=== PATIENT | female | born 2000 | race Two or more races ===

== ENCOUNTER 2022-07-21 20:43 | Emergency (ER) | payer SELFPAY ==
[~2022-07-21] VITALS: Ht 162.6 cm; Wt 68.5 kg
[2022-07-21 21:06] VITALS: BP 113/77
[2022-07-21 21:24] LABS: Urine Bacteria FEW /hpf (None Seen); Urine Blood Negative /uL (Negative); Urine Specific Gravity 1.017 (1.001-1.035); Urine WBC 25 /hpf (0 - 5)
[2022-07-21 21:43] LABS: Basophils # (auto) 0 10 ^3/uL (0-0.2); Basophils % (auto) 0.3 % (0.0-2.0); Eosinophils # (auto) 0 10 ^3/uL (0-0.8); Eosinophils % (auto) 0.4 % (0.0-7.0); Hemoglobin 13.5 g/dL (12.2-16.2); Lymphocytes # (auto) 1.8 10 ^3/uL (0.4-5.4); Lymphocytes % (auto) 14.7 % (10.0-50.0); Monocytes # (auto) 0.9 10 ^3/uL (0-1.3); Monocytes % (auto) 7.5 % (0.0-12.0); Neutrophils # (auto) 9.2 10 ^3/uL (1.6-8.6); Neutrophils % (auto) 77.1 % (37.0-80.0); Red Blood Cells 4.51 10^6/uL (4.0-5.20); Red Cell Distribution Width 13.2 % (11.8-14.3)
[2022-07-21 21:59] LABS: Albumin 3.6 g/dL (3.4-5.0); BUN/Creatinine Ratio 18.3; Calcium 9.2 mg/dL (8.5-10.1)
[2022-07-21] MEDS ORDERED: ACETAMINOPHEN 500 MG TAB PO ONE (22:00)
[2022-07-21] MEDS ORDERED: ONDANSETRON ODT 4 MG TAB PO ONE (22:00)
[2022-07-21 22:01] LABS: Bilirubin, Total 0.3 mg/dL (0.2-1.0); Total Protein 7.8 g/dL (6.4-8.2)
[2022-07-21] MEDS ORDERED: ACET1CAP14 PO (23:18)
[2022-07-21] MEDS ORDERED: MAGN400S25 PO (23:18)
[2022-07-21] MEDS ORDERED: CEPH-510 PO (23:18)
[2022-07-21] MEDS ORDERED: MILK OF MAGNESIA 30ML SUSP PO ONE (23:30)
[2022-07-21] MEDS ORDERED: cefTRIAXone W LIDOCAINE 1 GM IM IM ONE (23:30)
[2022-07-22] MEDS ORDERED: cefTRIAXone SOD 1,000 MG VL ONE (01:05)
== END 2022-07-22 02:54 | disposition home or self-care (01) ==
LOC: ER 20:45
DX: N39.0 Urinary tract infection, site not specified (principal); K59.00 Constipation, unspecified; R10.2 Pelvic and perineal pain; Z79.899 Other long term (current) drug therapy
CPT/HCPCS: 36415; 74176; 80053; 81001; 83690; 84702; 85025; 99284; J0696; Q0162